=== PATIENT | female | born 1955 | race Caucasian/White ===

== ENCOUNTER 2020-04-24 07:36 | Outpatient (REF) | payer MEDICAID, SELFPAY ==
[2020-04-24 08:17] LABS: Estimated Average Glucose 154 mg/dL
[2020-04-24 08:28] LABS: Alanine Aminotransferase 15 U/L (0-31); Albumin Level 4.2 g/dL (3.5-5.0); Alkaline Phosphatase 106 U/L (39-117); Anion Gap 12 (12-20); Aspartate Amino Transferase 12 U/L (5-31); Bilirubin Total 0.5 mg/dL (0.0-1.0); Blood Urea Nitrogen 13 mg/dL (9-16); Calcium 8.9 mg/dL (8.4-10.2); Carbon Dioxide 27 mmol/L (22-29); Chloride 105 mmol/L (96-108); Estimated Glomerular Filt Rate > 60; Glucose Fasting 133 mg/dL (60-99); Potassium 4.1 mmol/l (3.3-5.1); Sodium 140 mmol/L (135-145); Total Protein 7.5 g/dL (6.5-8.0)
== END 2020-04-24 07:37 | disposition home or self-care (01) ==
LOC: HO.LAB 07:36
PROVIDERS: Visit Provider Internal Medicine
DX: E78.00 Pure hypercholesterolemia, unspecified (principal); E11.9 Type 2 diabetes mellitus without complications; I10 Essential (primary) hypertension
CPT/HCPCS: 80053; 83036

== ENCOUNTER 2020-12-14 07:04 | Outpatient (REF) | payer MEDICAID, SELFPAY ==
[2020-12-14 08:19] LABS: MANUAL DIFF FLAG NO
[2020-12-14 08:24] LABS: Basophils Percent Auto 0.5 % (0-2); Eosinophils Absolute Auto 0.2 X10*3/uL (0.0-0.4); Eosinophils Percent Auto 2.8 % (0-4); Hematocrit 41.6 % (37-47); Hemoglobin 14.1 g/dl (12.0-16.0); Imm Gran Abs Auto 0.02 X10*3/uL (0.00-0.03); Imm Gran Pct Auto 0.3 % (0.0-0.4); Lymphocytes Absolute Auto 1.7 X10*3/uL (1.2-4.9); Lymphocytes Percent Auto 22.2 % (20-40); Mean Corpuscular HGB Conc 33.9 g/dl (31.0-35.0); Mean Corpuscular Hemoglobin 30.2 pg (27.0-33.0); Mean Corpuscular Volume 89.1 fL (80-98); Mean Platelet Volume 10.9 fL (9.4-12.3); Monocytes Absolute Auto 0.9 X10*3/uL (0.1-1.2); Monocytes Percent Auto 12.5 % (2-11); Neutrophils Absolute Auto 4.6 X10*3/uL (2.0-8.3); Neutrophils Percent Auto 61.7 % (45-73); Platelet Count 272 X10*3/uL (160-400); Red Blood Count 4.67 X10*6/uL (4.20-5.50); Red Cell Distribution Width 11.9 % (11.0-16.0); White Blood Count 7.4 X10*3/uL (4.8-10.8)
[2020-12-14 08:45] LABS: Alanine Aminotransferase 8 U/L (0-31); Albumin Level 4.2 g/dL (3.5-5.0); Alkaline Phosphatase 118 U/L (39-117); Anion Gap 13 (12-20); Aspartate Amino Transferase 12 U/L (5-31); Bilirubin Total 0.6 mg/dL (0.0-1.0); Blood Urea Nitrogen 19 mg/dL (9-16); Calcium 9.6 mg/dL (8.4-10.2); Carbon Dioxide 26 mmol/L (22-29); Chloride 106 mmol/L (96-108); Cholesterol 147 mg/dL; Estimated Glomerular Filt Rate > 60; Glucose Random 143 mg/dL (60-115); HDL Cholesterol 35 mg/dL; LDL Cholesterol Calculated 87 mg/dl; Potassium 4.1 mmol/L (3.3-5.1); Sodium 141 mmol/L (135-145); Total Protein 7.7 g/dL (6.5-8.0); Triglycerides 125 mg/dL
[2020-12-14 09:08] LABS: Thyroid Stimulating Hormone 0.48 uIU/mL (0.32-4.0)
[2020-12-14 09:45] LABS: Creatinine Urine 72.99 mg/dL; Microalbumin Urine < 5.0 mg/L
== END 2020-12-14 07:05 | disposition home or self-care (01) ==
LOC: HO.LAB 07:04
PROVIDERS: PCP Internal Medicine; Visit Provider Internal Medicine
DX: E11.9 Type 2 diabetes mellitus without complications (principal); E78.00 Pure hypercholesterolemia, unspecified; I10 Essential (primary) hypertension
CPT/HCPCS: 36415; 80053; 80061; 82043; 84443; 85025

== ENCOUNTER 2021-03-12 08:39 | Outpatient (REF) | payer MEDICAID, SELFPAY ==
[2021-03-12 11:03] LABS: Alanine Aminotransferase 12 U/L (0-31); Albumin Level 4.2 g/dL (3.5-5.0); Alkaline Phosphatase 115 U/L (39-117); Anion Gap 16 (12-20); Aspartate Amino Transferase 12 U/L (5-31); Bilirubin Total 0.9 mg/dL (0.0-1.0); Blood Urea Nitrogen 10 mg/dL (9-16); Calcium 9.7 mg/dL (8.4-10.2); Carbon Dioxide 23 mmol/L (22-29); Chloride 104 mmol/L (96-108); Estimated Glomerular Filt Rate > 60; Glucose Fasting 127 mg/dL (60-99); Sodium 139 mmol/L (135-145); Total Protein 7.8 g/dL (6.5-8.0)
[2021-03-12 11:04] LABS: Estimated Average Glucose 171 mg/dL; Hemoglobin A1c % 7.6 %
== END 2021-03-12 08:40 | disposition home or self-care (01) ==
LOC: HO.10HDL 08:39
PROVIDERS: Visit Provider Internal Medicine
DX: Z00.00 Encounter for general adult medical examination without abnormal findings (principal); E11.9 Type 2 diabetes mellitus without complications; E78.00 Pure hypercholesterolemia, unspecified; I10 Essential (primary) hypertension
CPT/HCPCS: 36415; 80053; 83036

== ENCOUNTER 2021-11-01 07:52 | Outpatient (REF) | payer MEDICARE, MEDICAID, SELFPAY ==
[2021-11-01 10:46] LABS: Alanine Aminotransferase 21 U/L (0-31); Albumin Level 4.2 g/dL (3.5-5.0); Alkaline Phosphatase 107 U/L (39-117); Anion Gap 12 (12-20); Aspartate Amino Transferase 14 U/L (5-31); Bilirubin Total 0.5 mg/dL (0.0-1.0); Blood Urea Nitrogen 15 mg/dL (9-16); Calcium 9.7 mg/dL (8.4-10.2); Carbon Dioxide 25 mmol/L (22-29); Chloride 106 mmol/L (96-108); Estimated Average Glucose 166 mg/dL; Estimated Glomerular Filt Rate > 60; Glucose Random 140 mg/dL (60-115); Hemoglobin A1c % 7.4 %; Potassium 4.3 mmol/L (3.3-5.1); Sodium 139 mmol/L (135-145)
== END 2021-11-01 07:53 | disposition home or self-care (01) ==
LOC: HO.10HDL 07:52
PROVIDERS: Visit Provider Internal Medicine
DX: E11.9 Type 2 diabetes mellitus without complications (principal); E78.00 Pure hypercholesterolemia, unspecified; I10 Essential (primary) hypertension
CPT/HCPCS: 36415; 80053; 83036

== ENCOUNTER 2022-01-31 07:30 | Outpatient (REF) | payer MEDICARE, MEDICAID, SELFPAY ==
[2022-01-31 10:37] LABS: Mean Corpuscular HGB Conc 32.6 g/dl (31.0-35.0); PLT CLUMP 1; Red Cell Distribution Width 11.9 % (11.0-16.0); SCAN SMEAR FLAG 1
[2022-01-31 10:39] LABS: Basophils Percent Auto 0.4 % (0-2); Eosinophils Absolute Auto 0.1 X10*3/uL (0.0-0.4); Eosinophils Percent Auto 1.8 % (0-4); Hematocrit 41.7 % (37.0-47.0); Hemoglobin 13.6 g/dl (12.0-16.0); Imm Gran Abs Auto 0.03 X10*3/uL (0.00-0.03); Imm Gran Pct Auto 0.4 % (0.0-0.4); Lymphocytes Percent Auto 25.4 % (20-40); MANUAL DIFF FLAG SCAN; Mean Corpuscular Hemoglobin 29.2 pg (27.0-33.0); Mean Corpuscular Volume 89.5 fL (80.0-98.0); Mean Platelet Volume 12.5 fL (9.4-12.3); Monocytes Absolute Auto 0.8 X10*3/uL (0.1-1.2); Monocytes Percent Auto 9.7 % (2-11); Neutrophils Absolute Auto 4.8 x10*3/uL (2.0-8.3); Neutrophils Percent Auto 62.3 % (45-73); Red Blood Count 4.66 X10*6/uL (4.20-5.50)
[2022-01-31 10:47] LABS: Alanine Aminotransferase 14 U/L (0-31); Alkaline Phosphatase 108 U/L (39-117); Anion Gap 18 (12-20); Aspartate Amino Transferase 14 U/L (5-31); Bilirubin Total 0.6 mg/dL (0.0-1.0); Blood Urea Nitrogen 17 mg/dL (9-16); Calcium 8.8 mg/dL (8.4-10.2); Carbon Dioxide 18 mmol/L (22-29); Chloride 107 mmol/L (96-108); Cholesterol 134 mg/dL; Estimated Glomerular Filt Rate > 60; Glucose Fasting 158 mg/dL (60-99); HDL Cholesterol 36 mg/dL; LDL Cholesterol Calculated 68 mg/dl; Potassium 4.2 mmol/L (3.3-5.1); Sodium 139 mmol/L (135-145); Total Protein 7.6 g/dL (6.5-8.0); Triglycerides 150 mg/dL
[2022-01-31 10:57] LABS: Estimated Average Glucose 174 mg/dL; Hemoglobin A1c % 7.7 %
[2022-01-31 11:09] LABS: White Blood Count 7.7 X10*3/uL (4.8-10.8)
[2022-01-31 11:41] LABS: Folate 16.3 ng/mL (> or = 4.0); Vitamin B12 592 pg/mL (200-900)
[2022-01-31 12:43] LABS: SLIDE REVIEW VERIFIED
== END 2022-01-31 07:31 | disposition home or self-care (01) ==
LOC: HO.10HDL 07:30
PROVIDERS: Visit Provider Internal Medicine
DX: E11.9 Type 2 diabetes mellitus without complications (principal); E78.00 Pure hypercholesterolemia, unspecified; I10 Essential (primary) hypertension; Z90.710 Acquired absence of both cervix and uterus
CPT/HCPCS: 36415; 80053; 80061; 82607; 82746; 83036; 85025

== ENCOUNTER 2022-02-01 10:47 | Outpatient (REF) | payer MEDICARE, MEDICAID, SELFPAY ==
[2022-02-01 13:55] LABS: Creatinine Urine 65.23 mg/dL; Microalbumin Urine < 5.0 mg/L
== END 2022-02-01 10:48 | disposition home or self-care (01) ==
LOC: HO.10HDLNP 10:47
PROVIDERS: Visit Provider Internal Medicine
DX: E11.9 Type 2 diabetes mellitus without complications (principal); E78.00 Pure hypercholesterolemia, unspecified; I10 Essential (primary) hypertension; Z90.710 Acquired absence of both cervix and uterus
CPT/HCPCS: 82043

== ENCOUNTER 2022-10-31 07:43 | Outpatient (REF) | payer MEDICARE, MEDICAID, SELFPAY ==
[2022-10-31 10:37] LABS: MANUAL DIFF FLAG NO
[2022-10-31 10:46] LABS: Basophils Percent Auto 0.3 % (0-2); Eosinophils Absolute Auto 0.2 X10*3/uL (0.0-0.4); Eosinophils Percent Auto 2.8 % (0-4); Hematocrit 41.4 % (37.0-47.0); Hemoglobin 13.4 g/dl (12.0-16.0); Imm Gran Abs Auto 0.02 X10*3/uL (0.00-0.03); Imm Gran Pct Auto 0.2 % (0.0-0.4); Lymphocytes Absolute Auto 1.8 X10*3/uL (1.2-4.9); Lymphocytes Percent Auto 20.5 % (20-40); Mean Corpuscular HGB Conc 32.4 g/dl (31.0-35.0); Mean Corpuscular Hemoglobin 28.8 pg (27.0-33.0); Mean Platelet Volume 10.8 fL (9.4-12.3); Monocytes Absolute Auto 0.9 X10*3/uL (0.1-1.2); Monocytes Percent Auto 10.2 % (2-11); Neutrophils Absolute Auto 5.7 x10*3/uL (2.0-8.3); Platelet Count 251 X10*3/uL (160-400); Red Blood Count 4.65 X10*6/uL (4.20-5.50); Red Cell Distribution Width 11.9 % (11.0-16.0); White Blood Count 8.6 X10*3/uL (4.8-10.8)
[2022-10-31 11:03] LABS: Alanine Aminotransferase 10 U/L (0-31); Albumin Level 4.3 g/dL (3.5-5.0); Alkaline Phosphatase 103 U/L (39-117); Anion Gap 13 (12-20); Aspartate Amino Transferase 12 U/L (5-31); Bilirubin Total 0.7 mg/dL (0.0-1.0); Blood Urea Nitrogen 17 mg/dL (9-16); Calcium 9.6 mg/dL (8.4-10.2); Carbon Dioxide 26 mmol/L (22-29); Chloride 103 mmol/L (96-108); Cholesterol 123 mg/dL; Estimated Glomerular Filt Rate > 60; Glucose Fasting 124 mg/dL (60-99); HDL Cholesterol 32 mg/dL; LDL Cholesterol Calculated 61 mg/dl; Potassium 3.9 mmol/L (3.3-5.1); Sodium 138 mmol/L (135-145); Total Protein 7.7 g/dL (6.5-8.0); Triglycerides 151 mg/dL
[2022-10-31 11:05] LABS: Estimated Average Glucose 146 mg/dL; Hemoglobin A1c % 6.7 %
== END 2022-10-31 07:44 | disposition home or self-care (01) ==
LOC: HO.10HDL 07:43
PROVIDERS: Visit Provider Internal Medicine
DX: E11.9 Type 2 diabetes mellitus without complications (principal); E78.00 Pure hypercholesterolemia, unspecified; I10 Essential (primary) hypertension; L50.9 Urticaria, unspecified
CPT/HCPCS: 36415; 80053; 80061; 83036; 85025

== ENCOUNTER 2022-11-01 09:36 | Outpatient (REF) | payer MEDICARE, MEDICAID, SELFPAY ==
[2022-11-01 14:28] LABS: Creatinine Urine 147.01 mg/dL; Microalbum/Creatinine Ratio Ur 6.8 ug/mg cr
== END 2022-11-01 09:37 | disposition home or self-care (01) ==
LOC: HO.10HDLNP 09:36
PROVIDERS: Visit Provider Internal Medicine
DX: E11.9 Type 2 diabetes mellitus without complications (principal); E78.00 Pure hypercholesterolemia, unspecified; I10 Essential (primary) hypertension; L50.9 Urticaria, unspecified
CPT/HCPCS: 82043

== ENCOUNTER 2023-01-30 07:56 | Outpatient (REF) | payer MEDICARE, MEDICAID, SELFPAY ==
[2023-01-30 11:38] LABS: Alanine Aminotransferase 13 U/L (0-31); Albumin Level 4.2 g/dL (3.5-5.0); Alkaline Phosphatase 100 U/L (39-117); Anion Gap 15 (12-20); Aspartate Amino Transferase 13 U/L (5-31); Bilirubin Total 0.8 mg/dL (0.0-1.0); Blood Urea Nitrogen 15 mg/dL (9-16); Calcium 9.8 mg/dL (8.4-10.2); Carbon Dioxide 25 mmol/L (22-29); Chloride 104 mmol/L (96-108); Estimated Glomerular Filt Rate > 60; Glucose Random 157 mg/dL (60-115); Potassium 4.6 mmol/L (3.3-5.1); Sodium 139 mmol/L (135-145); Total Protein 8.4 g/dL (6.5-8.0)
[2023-01-30 11:52] LABS: Estimated Average Glucose 148 mg/dL; Hemoglobin A1c % 6.8 %
== END 2023-01-30 07:57 | disposition home or self-care (01) ==
LOC: HO.10HDL 07:56
PROVIDERS: Visit Provider Internal Medicine
DX: E11.9 Type 2 diabetes mellitus without complications (principal); E78.00 Pure hypercholesterolemia, unspecified; I10 Essential (primary) hypertension
CPT/HCPCS: 36415; 80053; 83036

== ENCOUNTER 2023-11-01 09:16 | Outpatient (REF) | payer MEDICARE, MEDICAID, SELFPAY ==
[2023-11-01 11:20] LABS: Estimated Average Glucose 151 mg/dL; Hemoglobin A1c % 6.9 % (<6.0)
[2023-11-01 11:35] LABS: Alanine Aminotransferase 35 U/L (0-31); Albumin Level 4.2 g/dL (3.5-5.0); Alkaline Phosphatase 90 U/L (39-117); Anion Gap 14 (12-20); Aspartate Amino Transferase 23 U/L (5-31); Bilirubin Total 0.5 mg/dL (0.0-1.0); Blood Urea Nitrogen 17 mg/dL (9-16); Carbon Dioxide 26 mmol/L (22-29); Chloride 105 mmol/L (96-108); Estimated Glomerular Filt Rate > 60; Glucose Random 128 mg/dL (60-115); Potassium 4.2 mmol/L (3.3-5.1); Sodium 141 mmol/L (135-145)
== END 2023-11-01 09:17 | disposition home or self-care (01) ==
LOC: HO.10HDL 09:16
PROVIDERS: Visit Provider Internal Medicine
DX: E11.9 Type 2 diabetes mellitus without complications (principal); I10 Essential (primary) hypertension; Z68.29 Body mass index [BMI] 29.0-29.9, adult
CPT/HCPCS: 36415; 80053; 83036

== ENCOUNTER 2024-01-24 09:39 | Outpatient (REF) | payer MEDICARE, MEDICAID, SELFPAY ==
[2024-01-24 11:31] LABS: Alanine Aminotransferase 11 U/L (0-31); Albumin Level 4.4 g/dL (3.5-5.0); Alkaline Phosphatase 104 U/L (39-117); Anion Gap 12 (12-20); Aspartate Amino Transferase 14 U/L (5-31); Bilirubin Total 0.6 mg/dL (0.0-1.0); Blood Urea Nitrogen 15 mg/dL (9-16); Calcium 10.2 mg/dL (8.4-10.2); Carbon Dioxide 28 mmol/L (22-29); Chloride 105 mmol/L (96-108); Cholesterol 116 mg/dL (<200); Estimated Glomerular Filt Rate > 60; Glucose Random 123 mg/dL (60-115); HDL Cholesterol 37 mg/dL (>40); LDL Cholesterol Calculated 56 mg/dL (<100); Potassium 4.2 mmol/L (3.3-5.1); Sodium 141 mmol/L (135-145); Total Protein 8.2 g/dL (6.5-8.0); Triglycerides 119 mg/dL (<150)
[2024-01-24 11:33] LABS: Estimated Average Glucose 154 mg/dL
[2024-01-24 11:50] LABS: Creatinine Urine 95.36 mg/dL; Microalbum/Creatinine Ratio Ur 6.2 ug/mg cr (<30)
== END 2024-01-24 09:40 | disposition home or self-care (01) ==
LOC: HO.10HDL 09:39
PROVIDERS: Visit Provider Internal Medicine
DX: E11.9 Type 2 diabetes mellitus without complications (principal); E78.00 Pure hypercholesterolemia, unspecified; I10 Essential (primary) hypertension; Z90.710 Acquired absence of both cervix and uterus
CPT/HCPCS: 36415; 80053; 80061; 82043; 82570; 83036

== ENCOUNTER 2024-10-31 09:06 | Outpatient (REF) | payer MEDICARE, SELFPAY ==
--- OUTSIDE RECORDS SUMMARY | 2024-10-31 09:38 | XMS_ITS | Encounter Summary ---
Author Organization [facility] Address [facility] [place] [address] Care Team Providers Care Route Specialist Name Role Phone Jyoti Carrasco APRN Primary Care Provider [phone] Encounter Details Date Type Department Care Team (Late st Contact Info) Description 04/23/2024 Scanned Outside Records [facility] Historical Encounter Provider, MD Bipin Social History Tobacco Use Types Packs/Day Years Used Date Smoking Tobacco: Never Smokeless Tobacco: Never Alcohol Use Standard Drinks/Week Comments Never 0 (1 standard drink = 0.6 oz pur e alcohol) Humiliation, Afraid, Rape, and Kick questionnair e Answer Date Recorded Within the last year, have y ou been afraid of your partner or ex-partner? No 04/14/2023 Within the last year, have y ou been humiliated or emotionally abused in other ways by your partner or ex-partner? No Within the last year, have y ou been kicked, hit, slapped, or otherwise physically hurt by your partner or ex-partner? No 04/14/2023 Within the last year, have y ou been raped or forced to have any kind of sexual activity by your partner or ex-partner? No 04/14/2023 Social Connection and Isolation Panel Answer Date Recorded In a typical week, how many times do you talk on the phone with family, friends, or neighbors? More than three times a week 04/14/2023 How often do you get togethe r with friends or relatives? More than three times a week 04/14/2023 How often do you attend [facility] or yazdanism services? Patient declined 04/14/2023 Do you belong to any clubs o r organizations such as sikh groups, unions, fraternal or athletic groups, or school groups? Patient declined 04/14/2023 Attends Club or Organization Meetings Not on alexandra e 04/14/2023 Are you , , di vorced, , never , or living with a partner? 04/14/2023 AUDIT-C Answer Date Recorded Q1: How often do you have a drink containing alcohol? Never 04/14/2023 Q2: How many drinks containi ng alcohol do you have on a typical day when you are drinking? Patient does not drink Q3: How often do you have si x or more drinks on one occasion? Never 04/14/2023 Overall Financial Resource Strain (CARDIA) Answe r Date Recorded How hard is it for you to pa y for the very basics like food, housing, medical care, and heating? Not very hard 04/14/2023 PHQ-2 Answer Date Recorded Patient Health Questionnaire-2 Score 0 04/14/2023 [facility] - Occupational Stress Questionnaire Answer Date Recorded Do you feel stress - tense, restless, nervous, or anxious, or unable to sleep at night because your mind is troubled all the time - these days? Not at all 04/14/2023 Exercise Vital Sign Answer Date Recorde d On average, how many days pe r week do you engage in moderate to strenuous exercise (like a brisk walk)? 6 days 04/14/2023 On average, how many minutes do you engage in exercise at this level? 60 min 04/14/2023 Hunger Vital Sign Answer Date Recorded Within the past 12 months, y ou worried that your food would run out before you got the money to buy more. Never true 04/14/20 23 Within the past 12 months, t he food you bought just didn't last and you didn't have money to get more. Never true 04/14/2023 PRAPARE - Transportation Answer Date Re corded In the past 12 months, has l ack of transportation kept you from medical appointments or from getting medications? No 03/20 In the past 12 months, has l ack of transportation kept you from meetings, work, or from getting things needed for daily living? No 04/14/2023 Housing Stability Vital Sign Answer Eloy e Recorded In the last 12 months, was t here a time when you were not able to pay the mortgage or rent on time? No 04/14/2023 Number of Places Lived in the Last Year Not on f ile 04/14/2023 In the last 12 months, was t here a time when you did not have a steady place to sleep or slept in a prison (including now)? No 04/14/2023 [facility] Domestic Violence Answer Date Rec orded Do you feel threatened or afraid of others close to you? No 04/04/2023 [facility] Social Needs Screening - Social Connect ion Answer Date Recorded Would you like help with any of the following needs: food, medicine/medical supplies, transportation, loneliness, housing or utilities? Not on file 10/25/2023 [facility] Social Needs Screen ing - Medical Financial Resource Strain Answer Date Recorded Would you like help with any of the following needs: food, medicine/medical supplies, transportation, loneliness, housing or utilities? Not on file 06/26/2023 [facility] Social Needs Screening - Food Insecurit y Answer Date Recorded Would you like help with any of the following needs: food, medicine/medical supplies, transportation, loneliness, housing or utilities? See other domains 06/20/2023 Would you like help with any of the following needs: food, medicine/medical supplies, transportation, loneliness, or housing/utilities? Not on file 06/20/2023 [place] [facility] Social Needs Screening - Transportation Answer Date Recorded Would you like help with any of the following needs: food, medicine/medical supplies, transportation, loneliness, housing or utilities? Not on file 06/26/2023 [facility] Social Needs Screening - Housing Answer Date Recorded Would you like help with any of the following needs: food, medicine/medical supplies, transportation, loneliness, housing or utilities? Not on file 06/26/2023 Comments No Sex and Gender Information Value Date Recorded Sex Assigned at Not on file Legal Sex Female 4:37 AM EDT Gender Identity Female 04/10/2023 11:34 AM EDT Sexual Orientation Straight 04/10/2023 11 :34 AM EDT documented as of this encounter Plan of Treatment Upcoming Encounters Date Type Department Care Team (Late st Contact Info) Description 05/29/2025 1:00 PM EST Office Visit [facility] [address] [place] [address] Jyoti Carrasco APRN [address] [place] [address] documented as of this encounter Visit Diagnoses Not on filedocumented in this encounter Care Teams Route Specialist Relationship Specialty Start Date End Date Jyoti Carrasco APRN [address] [place] [address] PCP - General Family Medicine 02/21/24 documented as of this encounter
--- OUTSIDE RECORDS SUMMARY | 2024-10-31 09:38 | XMS_ITS | Encounter Summary ---
Author Organization [facility] Address [address] [place] [address] Care Team Providers Care General Dentist/Owner Name Role Phone Jyoti Carrasco APRN Primary Care Provider [phone] Encounter Details Date Type Department Care Team (Late st Contact Info) Description 05/10/2024 Scanned Outside Records [facility] Historical Encounter Provider, MD Bipin Social History [...] week 04/14/2023 How often do you attend [facility] or cheondoism services? Patient declined 04/14/2023 Do you belong to any clubs o r organizations such as advent groups, unions, fraternal or athletic groups, or [...] Recorded Patient Health Questionnaire-2 Score 0 04/14/2023 [facility] - Occupational Stress [...] place to sleep or slept in a fdc (including now)? No 04/14/2023 [facility] Domestic [...] Description 05/29/2025 1:00 PM EST Office Visit [facility] [address] [place] [address] Jyoti Carrasco APRN [address] [place] [address] documented as of this encounter Visit Diagnoses Not on filedocumented in this encounter Care Teams General Dentist/Owner Relationship Specialty Start Date End Date Jyoti Carrasco APRN [address] [place] [address] PCP - General Family Medicine 02/21/24 documented as of this encounter
--- OUTSIDE RECORDS SUMMARY | 2024-10-31 09:38 | XMS_ITS | Clinical Summary ---
Author Organization [facility] Address [address] [place] [address] Care Team Providers Care Body Engineer Name Role Phone Jyoti Carrasco APRN Primary Care Provider [phone] Allergies No known active allergies Medications aspirin 81 mg chewable tablet CHEW ONE TABLET BY MOUTH EVERY DAY 02/07/2023 Active hydrOXYzine 10 mg tablet Take 10 mg by mouth 3 (three) times a day if needed. Active Januvia 100 mg tabletIndicatio ns:Type 2 diabetes mellitus without complication, without long-term current use of insulin (CMS/Commercial -[facility]) Take 1 tablet (100 mg total) by mouth 1 (one) time each day. 90 tablet 1 05/24/2024 5 Active cyanocobalamin (VITAMIN B-12) 1,000 mcg tabletIndicatio ns:B12 deficiency Take 1 tablet (1,000 mcg total) by mouth 1 (one) time each day. 90 tablet 1 05/24/2024 5 Active atorvastatin (LIPITOR) 40 mg tabletIndicatio ns:Type 2 diabetes mellitus without complication, without long-term current use of insulin (CMS/Commercial -[facility]) Take 1 tablet (40 mg total) by mouth 1 (one) time each day. 90 tablet 1 05/24/2024 5 Active amLODIPine (NORVASC) 10 mg tabletIndicatio ns:Hypertension , essential Take 1 tablet (10 mg total) by mouth 1 (one) time each day. 90 tablet 08/22/2024 5 Active metFORMIN (GLUCOPHAGE) 1,000 mg tabletIndicatio ns:Type 2 diabetes mellitus without complication, without long-term current use of insulin (CMS/Commercial -HCC) Take 1 tablet (1,000 mg total) by mouth in the morning and 1 tablet (1,000 mg total) in the evening. Take with meals. 180 tablet 08/22/2024 Active Active Problems Problem Noted Date Diagnosed Date Cyst of pancreas (CMS/Commercial-HCC) 05/24/2024 Diverticula of intestine 05/24/2024 Functional dyspepsia 05/24/2024 Gastroduodenitis 05/24/2024 Hypertension, essential 05/24/2024 Adrenal adenoma, left 04/14/2023 Acute pancreatitis (Commercial-[facility]) 04/14/2023 Overview (04/14/2023): Patient taking Januvia for a year.Denies alcohol use or abdominal pain. No prior finding reported. Left nephrolithiasis 04/14/2023 Overview (04/14/2023): 1 mm non-obstructive found on CT 04/04/23. Type 2 diabetes mellitus wit hout complication, without long-term current use of insulin (CMS/Commercial-HCC) 04/14/2023 Encounters Date Type Department Care Team Description 10/09/2024 1:30 PM EDT Clinical Support [facility] [address] [place] [address] Type 2 diabetes mellitus without complication, without long-term current use of insulin (CMS/Commercial-HCC) 08/22/2024 1:00 PM EST Office Visit [facility] [address] [place] [address] Jyoti Carrasco APRN Type 2 diabetes mellitus without complication, without long-term current use of insulin (CMS/Commercial-HCC) (Primary Dx); Hypertension, essential 08/19/2024 9:45 AM EST Clinical Support [facility] [address] [address] Type 2 diabetes mellitus without complication, without long-term current use of insulin (CMS/Commercial-HCC); Cyst of pancreas ([facility] Type 2 diabetes mellitus without complications [facility]) from Last 3 Months Immunizations Immunization Administration Dates Next Due Influenza, High-Dose, Quadrivalent (CVX 197) Influenza, Quadrivalent, Adjuvanted (CVX 205) Influenza, trivalent, adjuvanted (CVX 168) 04/05 Rsv, Recombinant, Protein Rider bunit Rsvpref, Adj, Pf (CVX 303) 04/18/2023 pneumococcal conjugate PCV20 , polysaccharide [id number] conjugate (CVX 216) 09/09/2022 Family History Medical History Relation Name Comments Kidney disease Brother Addie Lamb Cancer Maternal Grandmother Sole Rosa Diabetes Mother Anika Reza Cancer Mother's Sister Yudith Garcia Relation Name Status Comments Brother Addie Lamb Maternal Grandmother Sole Rosa Mother Anika Reza Mother's Sister Yudith Garcia Social History Tobacco Use Types Packs/Day Years Used Date Smoking Tobacco: Never Smokeless Tobacco: Never Tobacco Cessation:Counseling Given: Not Answered Alcohol Use Standard Drinks/Week Comments Never 0 [...] week 04/14/2023 How often do you attend chur or tenriism services? Patient declined 04/14/2023 Do you belong to any clubs o r organizations such as baptist groups, unions, fraternal or athletic groups, or [...] Date Recorded Patient Health Questionnaire-2 Score 0 05/24/2024 [facility] - Occupational Stress Questionnaire Answer Date Recorded [...] place to sleep or slept in a mcfp (including now)? No 04/14/2023 [place] Domestic [...] Orientation Straight 04/10/2023 11 :34 AM EDT Last Filed Vital Signs Vital Sign Reading Time Taken Comments Blood Pressure 132/80 08/22/2024 1:00 PM EST Pulse 72 08/22/2024 1:00 PM EST Temperature 36.1 ??C (97 ??F) 07/11/2024 11:35 AM EST Respiratory Rate 16 08/22/2024 1:00 PM EST Oxygen Saturation 99% 08/22/2024 1:00 PM EST Inhaled Oxygen Concentration - - Weight 71.3 kg (157 lb 3 oz) 08/22/2024 1:00 PM EST Height 162.6 cm (5' 4 ) 08/22/2024 1:00 PM EST Body Mass Index 26.98 08/22/2024 1:00 PM EST Plan of Treatment Upcoming Encounters Date Type Department Care Team (Late st Contact Info) Description 05/29/2025 1:00 PM EST Office Visit [facility] [address] [place] [address] Jyoti Carrasco, CONTROL SYSTEMS DESIGNER [address] [place] [address] Health Maintenance Due Date Last Done Comments CT Colonography 1956 FIT-DNA 1956 FIT 1956 FOBT 1956 Sigmoidoscopy 1956 Depression Screening 1968 DTaP,Tdap,and Td Vaccines (1 - Tdap) 1975 Advance Care Planning 2021 Colonoscopy 06/19/2024 06/19/2014 [place] Colorectal Cancer Screening 06/19/2024 Mammogram 11/17/2024 11/17/2022 Diabetic Foot Exam 01/21/2025 01/22/2024 Hemoglobin A1C 02/19/2025 08/19/2024, 04/20, 08/02/2023, Additional history exists Fall Risk Screening 07/11/2025 07/11/2024 Lipid Panel 08/19/2029 08/19/2024, 05/13/2024 COVID-19 Vaccine Discontinued 04/17/2022, , 09/24/2020, Additional history exists Pneumococcal Vaccine: 50+ Years Completed 09/09/2022 Pneumococcal Vaccine: Pediatrics (0 to 5 Years) and At-Risk Patients (6 to 49 Years) Aged Out 09/09/2022 No longer eligible based on patient's age to complete this topic RSV women or 60 years and older Completed 04/18/2023 Influenza Vaccine Completed 04/05/2024, , 04/17/2022 Osteoporosis Screening Completed 07/02/2024 Diabetes Screening Discontinued 08/19/2024, 0 08/19/2024, 07/11/2024, Additional history exists HIB Vaccines Aged Out No longer eligi ble based on patient's age to complete this topic HPV Vaccines Aged Out No longer eligi ble based on patient's age to complete this topic Hepatitis A Vaccines Aged Out No long er eligible based on patient's age to complete this topic Hepatitis B Vaccines Aged Out No long er eligible based on patient's age to complete this topic Hepatitis C Screening Discontinued IPV Vaccines Aged Out No longer eligi ble based on patient's age to complete this topic Meningococcal ACWY Aged Out No longer eligible based on patient's age to complete this topic RSV patients under 20 months Aged Out No longer eligible based on patient's age to complete this topic Zoster Vaccines Discontinued Procedures Procedure Name Priority Date/Time Associated Diagnosis Comments ANKLE BRACHIAL INDEX Routine 10/09/2024 1:40 PM EDT Type 2 diabetes mellitus without complication, without long-term current use of insulin ([employer]) CBC WITH AUTO DIFFERENTIAL Routine 08/19/2024 8:54 AM EST Type 2 diabetes mellitus without complication, without long-term current use of insulin ([employer]) Cyst of pancreas ([employer]) THYROID FUNCTION CASCADE Routine 08/19/2024 8:54 AM EST Type 2 diabetes mellitus without complications ([employer]) HEMOGLOBIN A1C Routine 08/19/2024 8:54 AM EST Type 2 diabetes mellitus without complication, without long-term current use of insulin ([employer]) URINE MICROALBUMIN Routine 08/19/2024 8: 54 AM EST Type 2 diabetes mellitus without complication, without long-term current use of insulin ([employer]) LIPID PANEL Routine 08/19/2024 8:54 AM EST Type 2 diabetes mellitus without complication, without long-term current use of insulin ([facility] COMPREHENSIVE METABOLIC PANEL Routine 08/19/2024 8:54 AM EST Type 2 diabetes mellitus without complication, without long-term current use of insulin ([facility]) CBC WITH DIFFERENTIAL Routine 08/19/2024 8:54 AM EST Type 2 diabetes mellitus without complication, without long-term current use of insulin ([facility]) Cyst of pancreas ([facility]) DEXA BONE DENSITY AXIAL SKELETON Routine 07/02/2024 1:00 PM EST Osteoporosis screening from Last 3 Months or Most Recently Relevant to Health Maintenance Results * Ankle brachial index (10/09/2024 1:40 PM EDT) Narrative Bisi Gan LPN - 10/09/2024 1:40 PM EDT Ankle Brachial Right Brachial Systolic: 140 Left brachial systolic: 134 Highest arm systolic pressure: 140 Right ankle systolic DP: 168 Right leg systolic PT: 162 Left ankle systolic DP: 126 Left leg systolic PT: 158 Right BRIAN: 1.2 Left BRIAN: 1.13 BRIAN results within acceptable range. Jyoti Carrasco APRN NURSING ASSESSMENTS Final Result * Thyroid Function [place] (08/19/2024 8:54 AM EST) TSH 1.06 0.35 - 4.94 uIU/mL LAB CHEMISTRY METHOD 08/19/2024 10:32 AM EST [facility] Comment:Thyroid Function Dean evan Interp: No further testing Blood Venous blood specimen / Unknown Venipuncture / Unknown 08/19/2024 8:54 AM EST 08/19/2024 8:54 AM EST Jyoti Carrasco APRN LAB BLOOD ORDERABLES Final Result [facility] [address] [facility] [address] [place] [address], * CBC auto differential (08/19/2024 8:54 AM EST) WBC 8.0 4.4 - 10.5 x10(3)/uL LAB HEMATOLOGY METHOD 08/19/2024 9:59 AM EST [facility] RBC 4.43 3.75 - 5.00 x10(6)/uL LAB HEMATOLOGY METHOD 08/19/2024 9:59 AM EST [facility] Hgb 12.6 11.4 - 14.7 g/dL LAB HEMATOLOGY METHOD 08/19/2024 9:59 AM EST [facility] HCT 39.4 34.3 - 45.5 % LAB HEMATOLOGY METHOD 08/19/2024 9:59 AM EST [facility] MCV 88.9 80.5 - 99.8 fL LAB HEMATOLOGY METHOD 08/19/2024 9:59 AM EST [facility] MCH 28.4 26.8 - 33.0 pg LAB HEMATOLOGY METHOD 08/19/2024 9:59 AM EST [facility] MCHC 32.0 31.0 - 35.4 g/dL LAB HEMATOLOGY METHOD 08/19/2024 9:59 AM EST [facility] RDW 12.4 11.7 - 14.7 % LAB HEMATOLOGY METHOD 08/19/2024 9:59 AM EST [facility] Platelet 277 139 - 361 x10(3)/uL LAB HEMATOLOGY METHOD 08/19/2024 9:59 AM EST [facility] MPV 11.0 8.9 - 12.7 fL LAB HEMATOLOGY METHOD 08/19/2024 9:59 AM EST [facility] Immature Granulocyte % 0.4 % LAB HEMATOLOGY METHOD 08/19/2024 9:59 AM EST [facility] Comment:The Immature Granulo cyte (IG) parameter includes promyelocytes, myleocytes, and metamyolecytes. It does not include band forms. Preliminary studies have indicated IG % and/or Absolute show promise as an early screen for infection. Neutrophil % 64.0 % LAB HEMATOLOGY METHOD 08/19/2024 9:59 AM EST [facility] Lymphocyte % 22.1 % LAB HEMATOLOGY METHOD 08/19/2024 9:59 AM EST [facility] Monocyte % 9.9 % LAB HEMATOLOGY METHOD 08/19/2024 9:59 AM EST [facility] Eosinophil % 3.1 % LAB HEMATOLOGY METHOD 08/19/2024 9:59 AM EST [facility] Basophil % 0.5 % LAB HEMATOLOGY METHOD 08/19/2024 9:59 AM EST [facility] Nucleated RBC % 0.0 0.0 - 0.4 % LAB HEMATOLOGY METHOD 08/19/2024 9:59 AM EST [facility] Absolute Immature Granulocyte Count 0.03 <=0.06 x10(3)/ul LAB HEMATOLOGY METHOD 08/19/2024 9:59 AM EST [facility] Absolute Neutrophil Count 5.1 1.5 - 7.5 x10(3)/ul LAB HEMATOLOGY METHOD 08/19/2024 9:59 AM EST [facility] Absolute Lymphocyte Count 1.8 1.0 - 4.8 x10(3)/ul LAB HEMATOLOGY METHOD 08/19/2024 9:59 AM EST [facility] Absolute Monocyte Count 0.8 0.0 - 0.8 x10(3)/ul LAB HEMATOLOGY METHOD 08/19/2024 9:59 AM EST [facility] Absolute Eosinophil Count 0.3 0.0 - 0.5 x10(3)/ul LAB HEMATOLOGY METHOD 08/19/2024 9:59 AM EST [facility] Absolute Basophil Count 0.0 0.0 - 0.2 x10(3)/ul LAB HEMATOLOGY METHOD 08/19/2024 9:59 AM EST [facility] Absolute Nucleated RBC Count 0.00 0.00 - 0.03 x10(3)/ul LAB HEMATOLOGY METHOD 08/19/2024 9:59 AM EST [facility] Blood Venous blood specimen / Unknown Venipuncture / Unknown 08/19/2024 8:54 AM EST 08/19/2024 8:54 AM EST us Jyoti Carrasco CONTROL SYSTEMS DESIGNER LAB BLOOD ORDERABLES Final Result [facility] [address] [place] [address], * Urine Microalbumin (08/19/2024 8:54 AM EST) Microalb, Ur 0.6 0.5 - 29.0 mg/dL LAB CHEMISTRY METHOD 08/19/2024 6:33 PM EST [facility] Comment: Urinary microalbumin is intended to detect early glomerular damage.?Samples from patients with moderate to heavy proteinuria may yield falsely low or false negative results with this assay. Creatinine, Urine 83 mg/dL LAB CHEMISTRY METHOD 08/19/2024 6:33 PM EST [facility] Microalbumin/Crea tinine Ratio 7 1 - 30 mg/g LAB CHEMISTRY METHOD 08/19/2024 6:33 PM EST [facility] Comment: Urine Microalbumin note: The ADA (Diabetes care (1997) 20:S24-S27) has defined abnomalities in Albumin excretion as follows: Category ?Result Normal ? <30 Microalbuminuria ?30-300 Clinical Albuminuria ? >300 The ADA recommends that at least two of three specimens,collected within a 3-6 month period be abnormal, before considering a patient to be within a diagnostic category. Urine Urine specimen obtained by clean catch procedure / Unknown Non-blood Collection / Unknown 08/19/2024 8:54 AM EST 08/19/2024 8:54 AM EST Jyoti Crarasco APRN LAB URINE ORDERABLES Final Result Performing Organization Address City/State/[facility] Co de Phone Number [facility] [address] [place] [address], * (ABNORMAL) Hemoglobin A1c (08/19/2024 8:54 AM EST) Hemoglobin A1c 6.5(H) 4.0 - 6.0 % LAB CHEMISTRY METHOD 08/19/2024 6:40 PM EST [facility] Blood Venous blood specimen / Unknown Venipuncture / Unknown 08/19/2024 8:54 AM EST 08/19/2024 8:54 AM EST Jyoti Carrasco APRN LAB BLOOD ORDERABLES Final Result [facility] [address], [facility], * (ABNORMAL) Lipid panel (08/19/2024 8:54 AM EST) Triglycerides 78 7 - 149 mg/dL LAB CHEMISTRY METHOD 08/19/2024 10:09 AM EST [facility] Comment: Triglycerides: Normal - Less than 150 mg/dl Borderline High - 150 to 199 mg/dl High - 200 to 499 mg/dl Very High - 500 mg/dl or greater Cholesterol, Total 108(L) 118 - 199 mg/dL LAB CHEMISTRY METHOD 08/19/2024 10:09 AM EST [facility] Comment: Cholesterol: Desirable- Less than 200 mg/dl Borderline high- 200 to 239 mg/dl High- 240 mg/dl or greater HDL Cholesterol 34(L) 40 - 60 mg/dL LAB CHEMISTRY METHOD 08/19/2024 10:09 AM EST [facility] Comment: HDL Cholesterol: High (Desirable) - Greater than 60 mg/dl Acceptable - 40 to 60 mg/dl Low - Less than 40 mg/dl Chol/HDL Ratio 3.2(L) 3.9 - 5.7 LAB CHEMISTRY METHOD 08/19/2024 10:09 AM EST [facility] LDL Calculated 58 <=130 mg/dL LAB CHEMISTRY METHOD 08/19/2024 10:09 AM EST [facility] Comment: LDL Cholesterol: Below 70 mg/dL - Best for people who have coronary artery disease - including a history of heart attacks, angina, stents, or coronary bypass. Below 100 mg/dL - Optimal for people at risk of coronary artery disease or who have diabetes. Near optimal for people with uncomplicated coronary artery disease. 100-129 mg/dL - Near optimal if there is no coronary artery disease. High if there is coronary artery disease. 130-159 mg/dL - Borderline high if there is no coronary artery disease. High if there is coronary artery disease. 160-189 mg/dL - High if there is no coronary artery disease. Very high if there is coronary artery disease. 190 mg/dL and above - Very high, likely representing a genetic condition. Blood Venous blood specimen / Unknown Venipuncture / Unknown 08/19/2024 8:54 AM EST 08/19/2024 8:54 AM EST us Jyoti Garcia Danilo LAMBERT LAB BLOOD ORDERABLES Final Result [facility] [address] [facility] [address] [place] [id number], [place] [phone] * (ABNORMAL) Comprehensive metabolic panel (08/19/2024 8:54 AM EST) Pathologist [facility] Sodium 141 136 - 145 mmol/L LAB CHEMISTRY METHOD 08/19/2024 10:09 AM EST [facility] Potassium 4.4 3.5 - 5.1 mmol/L LAB CHEMISTRY METHOD 08/19/2024 10:09 AM EST [facility] Chloride 108(H) 98 - 107 mmol/L LAB CHEMISTRY METHOD 08/19/2024 10:09 AM EST [facility] CO2 24 22 - 31 mmol/L LAB CHEMISTRY METHOD 08/19/2024 10:09 AM EST [facility] Glucose 106 80 - 115 mg/dL LAB CHEMISTRY METHOD 08/19/2024 10:09 AM EST [facility] BUN 15 7 - 20 mg/dL LAB CHEMISTRY METHOD 08/19/2024 10:09 AM EST [facility] Creatinine 0.64 0.60 - 1.10 mg/dL LAB CHEMISTRY METHOD 08/19/2024 10:09 AM EST [facility] BUN/Creatinine Ratio 23.4(H) 7.3 - 21.7 LAB CHEMISTRY METHOD 08/19/2024 10:09 AM EST [facility] Calcium 9.7 8.4 - 10.2 mg/dL LAB CHEMISTRY METHOD 08/19/2024 10:09 AM EST [facility] Total Protein 7.6 6.4 - 8.3 g/dL LAB CHEMISTRY METHOD 08/19/2024 10:09 AM EST [facility] Albumin Level 3.9 3.5 - 5.0 g/dL LAB CHEMISTRY METHOD 08/19/2024 10:09 AM EST [facility] Bilirubin Total 0.5 0.2 - 1.2 mg/dL LAB CHEMISTRY METHOD 08/19/2024 10:09 AM EST [facility] ALT 10 6 - 55 U/L LAB CHEMISTRY METHOD 08/19/2024 10:09 AM EST [facility] AST 10 5 - 34 U/L LAB CHEMISTRY METHOD 08/19/2024 10:09 AM EST [facility] ALP 84 40 - 150 U/L LAB CHEMISTRY METHOD 08/19/2024 10:09 AM EST [facility] Osmolality Calc 292 280 - 300 mOs/kg LAB CHEMISTRY METHOD 08/19/2024 10:09 AM EST [facility] Anion Gap 9 2 - 12 mmol/L LAB CHEMISTRY METHOD 08/19/2024 10:09 AM EST [facility] Corrected Calcium 9.78 mg/dL 025 10:09 AM EST [facility] eGFR 96 mL/min LAB CHEMISTRY METHOD 08/19/2024 10:09 AM EST [facility] Comment: Calculation based on the Chronic Kidney Disease Epidemiology Collaboration (CKD- EPI) equation refit without adjustment for race. GFR ranges: A GFR of 60 higher is in the normal range. A GFR below 60 may mean kidney disease. A GFR of 15 or lower may mean kidney failure. Below shows the 5 stages of CKD with ICD-10 code and GFR for each stage: N18.1 Stage 1: With normal or high GFR (GFR > 90 mL/min) N18.2 Stage 2: Mild CKD (GFR = 60-89 mL/min) N18.3 Stage 3A: Moderate CKD (GFR = 45-59 mL/min) N18.3 Stage 3B: Moderate CKD (GFR = 30-44 mL/min) N18.4 Stage 4: Severe CKD (GFR = 15-29 mL/min) N18.5 Stage 5: End Stage CKD (GFR < 15 mL/min) Blood Venous blood specimen / Unknown Venipuncture / Unknown 08/19/2024 8:54 AM EST 08/19/2024 8:54 AM EST us Jyoti Carrasco APRN LAB BLOOD ORDERABLES Final Result [facility] [address] [place] [address], * DEXA Bone Density Axial Skeleton (07/02/2024 1:00 PM EST) Anatomical Region Laterality Modality Wrist, Hip, L-spine N/A Radiographic Imaging Impressions 07/03/2024 1:31 PM EST Normal bone mineral density according to the W.H.O. criteria. Dictated on: 07/03/2024 1:23 PM Signed by: Toro Oneal M.D. ??07/03/2024 1:31 PM Narrative 07/03/2024 1:31 PM EST DEXA BONE DENSITY AXIAL SKELETON HISTORY: Special screening for osteoporosis postmenopausal. History of diabetes. COMPARISON: None. Examination performed at [facility] DEXA on a [employer] W DEXA Scanner. DEXA INFORMATION Please note: 1) The T-score compares the BMD of an individual with the young normal mean and expresses the difference as a standard deviation score. 2) The Z-score compares the BMD of an individual with age-matched, gender- matched, and ethnic-matched controls and expresses the difference as a standard deviation score. 3) The World Health Organization classifies postmenopausal women as osteoporotic when T-scores are -2.5 or below, low bone mass when T-scores are between -1.0 and -2.5, and normal when T-scores are -1.0 or above. 4) In untreated postmenopausal women and elderly men there is a strong association between low BMD and the risk of osteoporotic fractures. 5) The National Osteoporosis Foundation recommends pharmacologic therapy for osteoporosis in postmenopausal women and men over 50 who have: * ??A vertebral or hip fracture * ??A DXA hip or spine T-score less than or equal to -2.5 * ??Low bone mass and a [place]-adapted WHO 10 year probability of a hip fracture greater than or equal to 3% or 10 year probability of any major osteoporosis-related fracture greater than or equal to 20%. * ??Patient preferences may indicate treatment for people with 10-year fracture probability above or below these levels. 6) The [place] [employer] recommends pharmacologic therapy for osteoporosis for chronic glucocorticoid users with T-scores of -2.0 or below. 7) ??Secondary causes of bone loss should be evaluated if clinically indicated since the etiology of low BMD cannot be determined by BMD measurement alone. Fracture risk assessment includes clinical criteria. See the WHO FRAX at www.shef.ac.uk/frax. LUMBAR SPINE: -Average bone mineral density (g/sq.cm) L1-L4: 1.007 -Previous bone mineral density: None -T-score: -0.36 -Z-score: 1.60 LEFT FEMORAL NECK: -Average bone mineral density (g/sq.cm) Neck: 0.788 -Previous neck: None -T-score: -0.73 -Z-score: 0.88 LEFT TOTAL HIP: -Average bone mineral density (g/sq.cm) total hip: 0.932 -Previous total hip: None -T-score: -0.22 -Z-score: 1.08 Procedure Note Toro Oneal MD - 07/03/2024 DEXA BONE DENSITY AXIAL SKELETON HISTORY: Special screening for osteoporosis postmenopausal. History ofdiabetes. COMPARISON: None. Examination performed at [facility] DEXA on a [employer] W DEXAScanner. DEXA INFORMATION Please note: 1) The T-score compares the BMD of an individual with the young normalmean and expresses the difference as a standard deviation score. 2) The Z-score compares the BMD of an individual with age-matched,gender-matched, and ethnic-matched controls and expresses the differenceas a standard deviation score. 3) The World Health Organization classifies postmenopausal womenas osteoporotic when T-scores are -2.5 or below, low bone mass whenT-scores are between -1.0 and -2.5, and normal when T-scores are -1.0 orabove. 4) In untreated postmenopausal women and elderly men there is a strongassociation between low BMD and the risk of osteoporotic fractures. 5) The National Osteoporosis Foundation recommends pharmacologic therapyfor osteoporosis in postmenopausal women and men over 50 who have: * A vertebral or hip fracture * A DXA hip or spine T-score less than or equal to -2.5 * Low bone mass and a [place]-adapted WHO 10 year probability of a hipfracture greater than or equal to 3% or 10 year probability of any majorosteoporosis-related fracture greater than or equal to 20%. * Patient preferences may indicate treatment for people with 10-yearfracture probability above or below these levels. 6) The [place] [employer] recommends pharmacologic therapyfor osteoporosis for chronic glucocorticoid users with T-scores of -2.0 orbelow. 7) Secondary causes of bone loss should be evaluated if clinicallyindicated since the etiology of low BMD cannot be determined by BMDmeasurement alone. Fracture risk assessment includes clinical criteria. See the WHO FRAX atwww.shef.ac.uk/frax. LUMBAR SPINE: -Average bone mineral density (g/sq.cm) L1-L4: 1.007 -Previous bone mineral density: None -T-score: -0.36 -Z-score: 1.60 LEFT FEMORAL NECK: -Average bone mineral density (g/sq.cm) Neck: 0.788 -Previous neck: None -T-score: -0.73 -Z-score: 0.88 LEFT TOTAL HIP: -Average bone mineral density (g/sq.cm) total hip: 0.932 -Previous total hip: None -T-score: -0.22 -Z-score: 1.08 IMPRESSION: Normal bone mineral density according to the W.H.O. criteria. Dictated on: 07/03/2024 1:23 PM Signed by: Toro Oneal M.D. 07/03/2024 1:31 PM Jyoti Carrasco APRN IMG DXA PROCEDURES Final R esult from Last 3 Months or Most Recently Relevant to Health Maintenance Insurance MEDICARE A & B [facility] MEDICARE SUPPLEMENT Care Teams Body Engineer Relationship Specialty Start Date End Date Jyoti Carrasco, FAUSTO [address] [place] [id number] PCP - General Family Medicine 02/21/24
--- OUTSIDE RECORDS SUMMARY | 2024-10-31 09:39 | XMS_ITS | Patient Health Record ---
Author Organization [facility] [place] Address [address] [place] [address] Care Team Providers Care Card Player Name Role Phone Magdalena Denney Unavailable [phone] RacquelSole Unavailable [phone] Allergies No Known Allergies Reason For Referral Reason She is due for repea t EUS in Jun 2024--- history of pancreatic cyst -- EUS on 07/07/23: A cystic lesion was seen in the pancreatic head. 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 Multiple cystic lesions were seen in the pancreatic body and pancreatic tail. Tissue has not been obtained. 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 Repeat EUS in June 2024. Diagnosis 1 Cyst of pancreas (K8 6.2) Referral Organization [facility] [place] Referring Provider First Name Sole Referring Provider Last Name Racquel Referring Provider Speciality Gastroente rology Referred Provider Gualberto Arreaga Referred Provider Specialty Gastroentero logy Referral Priority Routine Medications Medication SIG (Take, Route, Frequency, Duration) Notes Start Date End Date Status metFORMIN HCl Active Januvia Active Vitamin B 12 Active amLODIPine Besylate Active Famotidine 20 MG TAKE 1 TABLET BY DANYELLE TH DAILY AT BEDTIME for 90 Not-Taki ng Aspir-81 Active Atorvastatin Calcium Active hydrOXYzine HCl Acti ve Problems Problem Type SNOMED Code ICD Code Onset Dates Problem Status W/U Status Risk Notes Problem Gastroduodenitis (420356630) Gastritis, unspecified, without bleeding (K29.70) Active confirmed 07/2023 EGD: Gastritis, characterized by erosion and erythema, BX: Gastric antral type mucosa with reactive gastropathy, Neg Hpylori 04/19/24- telemed- Patient was taking famotidine and ran out of medication. She has no complaints or symptoms of reflux. 08/08/24- Telemed- She has no complaints. Problem Functional dyspepsia (3499573) Functional dyspepsia (K30) Active confirmed 07/2023 EGD: Normal esophagus Problem Diverticula of intestine (97475707) Diverticulosis of intestine, part unspecified, without perforation or abscess without bleeding (K57.90) Active confirmed 07/2023 Colonoscopy : Diverticulosis in the sigmoid colon Problem Cyst of pancreas (48237141) Cyst of pancreas (K86.2) Active confirmed 04/04/2023 CT A+P: No specific lesion identified with regard to the pancreas however there is inflammation seen adjacent to the head and neck of the pancreas, especially the inferior aspect and draping over a portion of the small bowel the small bowel is otherwise unremarkable please correlate with pancreatic enzymes. 05/29/2023 MRI: Ovoid 10 mm cystic lesion in the pancreatic head neck junction. 5 mm cystic lesion in the pancreatic head. 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 No worrisome findings. One-year follow-up MRI recommended for surveillance. 07/07/2023 EUS: A cystic lesion was seen in the pancreatic head. Tissue has not been obtained. 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 Multiple cystic lesions were seen in the pancreatic body and pancreatic tail. Tissue has not been obtained. 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 There was no sign of significant pathology in the common bile duct. No specimens collected. Repeat EUS in 1 year 04/19/24- Telemed- She has no complaints. She needs updated MRI for pancreatic cyst and EUS in Jun/Jul 2024 for suv of her pancreatic cyst 07/11/2024 EUS: A cystic lesion was seen in the pancreatic head. Tissue has not been obtained. 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 Multiple cystic lesions were seen in the pancreatic body and pancreatic tail. Tissue has not been obtained. 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 There was no sign of significant pathology in the common bile duct. No specimens collected. Repeat EUS in 3 years for surveilance 08/08/24- Discussed EUS - repeat in 3 years Problem Screening for malignant neoplasm of colon (759477320) Encounter for screening for malignant neoplasm of colon (Z12.11) Active confirmed 07/2023 Colonoscopy: Fair prep. Redundant colon. No specimens collected Vital Signs Height 5ft 4in in 04/19/2024 Weight 160 lbs 04/19/2024 BMI 27.46 kg/m2 04/19/2024 Encounters Encounter Location Date Provider Diagnosis [facility] [place] [address] [address] [place], [place] 04/19/2024 Sole Clement Cyst of pancreas K86.2 and Gastritis, unspecified, without bleeding K29.70 [facility] [place] [address], [place] 08/08/2024 Sole Clement Cyst of pancreas K86.2 and Gastritis, unspecified, without bleeding K29.70 Assessments Encounter Date Diagnosis (ICD Code) Assessment Notes Treatment Notes Treatment Clinical Notes Section Notes 04/19/2024 Gastritis, unspecified, without bleeding (ICD-10 - K29.70) 07/2023 EGD: Gastritis, characterized by erosion and erythema, BX: Gastric antral type mucosa with reactive gastropathy, Neg Hpylori 04/19/24- telemed- Patient was taking famotidine and ran out of medication. She has no complaints or symptoms of reflux. Anti-Reflux Plan: Raise the head of the bed 4 to 6 inches. Decrease excess weight. Do not lie down for at least 3-4 hours after meals. Avoid the following: Patillas including juices, Cigarettes, Chocolate, Tightly fitting Clothing, Coffee and other caffeinated beverages, carbonated beverages, high fat containing foods and fried foods. Gastritis: Care Instruction 04/19/2024 Cyst of pancreas (ICD-10 - K86.2) 04/04/2023 CT A+P: No specific lesion identified with regard to the pancreas however there is inflammation seen adjacent to the head and neck of the pancreas, especially the inferior aspect and draping over a portion of the small bowel the small bowel is otherwise unremarkable please correlate with pancreatic enzymes. 05/29/2023 MRI: Ovoid 10 mm cystic lesion in the pancreatic head neck junction. 5 mm cystic lesion in the pancreatic head. 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 No worrisome findings. One-year follow-up MRI recommended for surveillance. 07/07/2023 EUS: A cystic lesion was seen in the pancreatic head. Tissue has not been obtained. 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 Multiple cystic lesions were seen in the pancreatic body and pancreatic tail. Tissue has not been obtained. 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 There was no sign of significant pathology in the common bile duct. No specimens collected. Repeat EUS in 1 year 04/19/24- Telemed- She has no complaints. She needs updated MRI for pancreatic cyst and EUS in Jul 2024 for suv of her pancreatic cyst She needs updated MRI for pancreatic cyst and EUS in Jul 2024. Last visit 08/11/23-- history of pancreatic cyst -- EUS on 07/07/23: A cystic lesion was seen in the pancreatic head. Tissue has not been obtained. 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 Multiple cystic lesions were seen in the pancreatic body and pancreatic tail. Tissue has not been obtained. 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 There was no sign of significant pathology in the common bile duct. No specimens collected. Repeat MRI in May 2024. Repeat EUS in June 2024. 08/08/2024 Gastritis, unspecified, without bleeding (ICD-10 - K29.70) 07/2023 EGD: Gastritis, characterized by erosion and erythema, BX: Gastric antral type mucosa with reactive gastropathy, Neg Hpylori 04/19/24- telemed- Patient was taking famotidine and ran out of medication. She has no complaints or symptoms of reflux. 08/08/24- Telemed- She has no complaints. Anti-Reflux Plan: Raise the head of the bed 4 to 6 inches. Decrease excess weight. Do not lie down for at least 3-4 hours after meals. Avoid the following: Patillas including juices, Cigarettes, Chocolate, Tightly fitting Clothing, Coffee and other caffeinated beverages, carbonated beverages, high fat containing foods and fried foods. Gastritis: Care Instructions 08/08/2024 Cyst of pancreas (ICD-10 - K86.2) 04/04/2023 CT A+P: No specific lesion identified with regard to the pancreas however there is inflammation seen adjacent to the head and neck of the pancreas, especially the inferior aspect and draping over a portion of the small bowel the small bowel is otherwise unremarkable please correlate with pancreatic enzymes. 05/29/2023 MRI: Ovoid 10 mm cystic lesion in the pancreatic head neck junction. 5 mm cystic lesion in the pancreatic head. 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 No worrisome findings. One-year follow-up MRI recommended for surveillance. 07/07/2023 EUS: A cystic lesion was seen in the pancreatic head. Tissue has not been obtained. 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 Multiple cystic lesions were seen in the pancreatic body and pancreatic tail. Tissue has not been obtained. 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 There was no sign of significant pathology in the common bile duct. No specimens collected. Repeat EUS in 1 year 04/19/24- Telemed- She has no complaints. She needs updated MRI for pancreatic cyst and EUS in Jun/Jul 2024 for suv of her pancreatic cyst 07/11/2024 EUS: A cystic lesion was seen in the pancreatic head. Tissue has not been obtained. 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 Multiple cystic lesions were seen in the pancreatic body and pancreatic tail. Tissue has not been obtained. 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 There was no sign of significant pathology in the common bile duct. No specimens collected. Repeat EUS in 3 years for surveilance 08/08/24- Discussed EUS - repeat in 3 years Discussed EUS. EUS report revealed A cystic lesion was seen in the pancreatic head. Multiple cystic lesions were seen in the pancreatic body and pancreatic tail. Tissues has not been obtained. 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 No sign of significant pathology in the CBD. It was recommended to repeat in 3 years (2027). MRI stable cysts and recommended to repeat in 1-2 years. She mujica sno complaints. 04/19/2024 Other spoke with chase Salvador APRN Plan Of Treatment Pending Test Test Name Order Date MRI : Abdomen with Contrast and without contrast 04/19/2024 EGD+BX 07/03/2023 CA 19-9 04/19/2024 COLONOSCOPY SCREENING 07/03/2023 Insurance Providers Payer Name Payer Address Payer Phone Subscriber Number Group Number Insured Name Patient Relationship to Insured Coverage Start Date Coverage End Date MEDICARE [address] [place] [address] [id number] LYSSA WALLIS Self - patient is the insured 2 [employer] Supp [address] [place] [address] [id number] LYSSA WALLIS Self - patient is the insured Medical (General) History Medical History History ICD Code diabetes hyperlipidemia hypertension pancreatic cysts GERD Surgical History Surgery Date(Month/Year) partial hysterectomy Hospitalization History Reason Date(Month/Year) lower back pain 03/2023
[2024-10-31 10:05] LABS: MANUAL DIFF FLAG NO
[2024-10-31 10:46] LABS: Basophils Absolute Auto 0.1 X10*3/uL (0.0-0.2); Basophils Percent Auto 0.6 % (0-2); Eosinophils Absolute Auto 0.3 X10*3/uL (0.0-0.4); Eosinophils Percent Auto 3.5 % (0-4); Hematocrit 40.4 % (37.0-47.0); Imm Gran Abs Auto 0.02 X10*3/uL (0.00-0.03); Imm Gran Pct Auto 0.2 % (0.0-0.4); Mean Corpuscular HGB Conc 32.2 g/dl (31.0-35.0); Mean Corpuscular Hemoglobin 28.9 pg (27.0-33.0); Mean Corpuscular Volume 89.8 fL (80.0-98.0); Mean Platelet Volume 10.8 fL (9.4-12.3); Monocytes Absolute Auto 0.9 X10*3/uL (0.1-1.2); Monocytes Percent Auto 10.7 % (2-11); Neutrophils Absolute Auto 4.8 x10*3/uL (2.0-8.3); Platelet Count 298 X10*3/uL (160-400); Red Cell Distribution Width 12.1 % (11.0-16.0)
[2024-10-31 10:53] LABS: Alanine Aminotransferase 14 U/L (0-31); Albumin Level 4.1 g/dL (3.5-5.0); Alkaline Phosphatase 97 U/L (39-117); Anion Gap 12 (12-20); Aspartate Amino Transferase 17 U/L (5-31); Bilirubin Total 0.5 mg/dL (0.0-1.0); Blood Urea Nitrogen 17 mg/dL (9-16); Calcium 9.4 mg/dL (8.4-10.2); Carbon Dioxide 26 mmol/L (22-29); Chloride 105 mmol/L (96-108); Cholesterol 129 mg/dL (<200); Estimated Glomerular Filt Rate > 60; Glucose Random 104 mg/dL (60-115); HDL Cholesterol 41 mg/dL (>40); LDL Cholesterol Calculated 68 mg/dL (<100); Sodium 139 mmol/L (135-145); Total Protein 7.5 g/dL (6.5-8.0); Triglycerides 102 mg/dL (<150)
[2024-10-31 10:57] LABS: Estimated Average Glucose 140 mg/dL; Hemoglobin A1C 159.9302 umol/L; Hemoglobin A1c % 6.5 % (<6.0); Total Hemoglobin (HGBA1C) 3327.6723 umol/L
== END 2024-10-31 09:07 | disposition home or self-care (01) ==
LOC: HO.10HDL 09:06
PROVIDERS: Visit Provider Internal Medicine
DX: E11.9 Type 2 diabetes mellitus without complications (principal); E78.00 Pure hypercholesterolemia, unspecified; I10 Essential (primary) hypertension; K59.00 Constipation, unspecified; N95.1 Menopausal and female climacteric states
CPT/HCPCS: 36415; 80053; 80061; 83036; 85025

== ENCOUNTER 2025-03-03 08:51 | Outpatient (REF) | payer MEDICARE, SELFPAY ==
--- OUTSIDE RECORDS SUMMARY | 2025-03-03 10:11 | XMS_ITS | Encounter Summary ---
Author Organization [facility] Address [facility] [place] [address] Care Team Providers Care Wad Impregnator Name Role Phone Jyoti Carrasco APRN Primary Care Provider [phone] Encounter Details Date Type Department Care Team (Late st Contact Info) Description 05/10/2024 Scanned Outside Records [facility] Historical Encounter Provider, MD Bipin Social History [...] week 04/14/2023 How often do you attend [facility] or jain services? Patient declined 04/14/2023 Do you belong to any clubs o r organizations such as rastafari groups, unions, fraternal or athletic groups, or [...] Recorded Patient Health Questionnaire-2 Score 0 04/14/2023 [facility] - Occupational Stress Questionnaire Answer [...] place to sleep or slept in a custodial (including now)? No 04/14/2023 [place] Domestic [...] Description 05/29/2025 1:00 PM EST Office Visit [facility] [address] [place] [address] Jyoti Carrasco APRN [address] [place] [address] documented as of this encounter Visit Diagnoses Not on filedocumented in this encounter Care Teams Wad Impregnator Relationship Specialty Start Date End Date Jyoti Carrasco, FAUSTO [address] [place] [address] PCP - General Family Medicine 02/21/24 documented as of this encounter
--- OUTSIDE RECORDS SUMMARY | 2025-03-03 10:11 | XMS_ITS | Clinical Summary ---
Author Organization [facility] Address [address] [place] [address] Phone Care Team Providers Care Ore Charger Name Role Phone Armida Hemphill MD Primary Care Provider [phone] Encounters Date Type Department Care Team Description 01/23/2025 8:36 AM EDT - 01/23/2025 11:59 PM EDT Hospital [facility] [address] [address] Encounter for screening mammogram for breast cancer Discharge Disposition: Home or Self Care from Last 3 Months Surgical History Surgery Date Site/Laterality Comments HYSTERECTOMY 06/19/2013 - 06/18/2014 Family History Medical History Relation Name Comments Breast cancer Maternal Grandmother Breast cancer Mother's Sister Relation Name Status Comments Maternal Grandmother Mother's Sister Alive Social History Tobacco Use Types Packs/Day Years Used Date Smoking Tobacco: Never Assessed Comments No Sex and Gender Information Value Date Recorded Sex Assigned at Not on file Legal Sex Female 2:56 PM EST Gender Identity Not on file Sexual Orientation Not on file Obstetrics History Para Term AB IAB SAB Ectopic Multiple Livin g Live Births 2 Last Filed Vital Signs Vital Sign Reading Time Taken Comments Blood Pressure - - Pulse - - Temperature - - Respiratory Rate - - Oxygen Saturation - - Inhaled Oxygen Concentration - - Weight 72.6 kg (160 lb) 01/23/2025 8:44 AM EDT Height 162.6 cm (5' 4 ) 01/23/2025 8:44 AM EDT Body Mass Index 27.46 01/23/2025 8:44 AM EDT Plan of Treatment Health Maintenance Due Date Last Done Comments DTaP,Tdap,and Td Vaccines (1 - Tdap) 1975 Pneumococcal Vaccine: 50+ Years (1 of 1 - PCV) 2006 Zoster Vaccines (1 of 2) 2006 Colorectal Cancer Screening: Colonoscopy 05/18/2022 Falls Risk Assessment 05/18/2022 Hepatitis C Screening 05/18/2022 Medicare Annual Wellness Visit 05/18/2022 Osteoporosis Screening (Bone Density Screening) 05/18/2022 Social Influencers of Health Screening 05/18/2022 Depression Screening 06/19/2024 COVID-19 Vaccine ( - season) 2025 Influenza Vaccine (#1) 2025 Breast Cancer Screening 01/23/2027 01/24/20, 01/01/2024, 12/29/2022, Additional history exists RSV Immunization Adult Patients (1 - 1-dose 75+ series) 2031 HIB Vaccines Aged Out No longer eligi [...] on patient's age to complete this topic IPV Vaccines Aged Out No longer eligi ble based on patient's age to complete this topic MMR Vaccines Aged Out No longer eligi ble based on patient's age to complete this topic Meningococcal ACWY Vaccine Aged Out N o longer eligible based on patient's age to complete this topic Meningococcal B Vaccine Aged Out No l onger eligible based on patient's age to complete this topic RSV Immunization Patients Under 20 months Aged Out No longer eligible based on patient's age to complete this topic Varicella Vaccines Aged Out No longer eligible based on patient's age to complete this topic Procedures Procedure Name Priority Date/Time Associated Diagnosis Comments MG MAMMO DIGITAL SCREENING W MARKUS BILAT Routine 01/23/2025 8:53 AM EDT Encounter for screening mammogram for breast cancer from Last 3 Months Results * MG Mammo Digital Screening w Markus bilat (01/23/2025 8:53 AM EDT) Anatomical Region Laterality Modality Breast Bilateral Mammography 01/23/2025 4:54 PM EDT Impressions 01/23/2025 5:03 PM EDT No mammographic evidence of malignancy. No suspicious interval change. A negative mammogram in the presence of a clinically suspicious palpable abnormality does not preclude the possibility of malignancy or alter the indications for biopsy. ASSESSMENT: BI-RADS 2: BENIGN RECOMMENDATION(S): 1: Routine screening mammogram BILATERAL in 1 year. [facility] [address], [address] -------- FINAL REPORT -------- Dictated By: Andrez Elias Dictated Date: 01/23/2025 16:54 ET Assigned Physician: Andrez Elias Reviewed and Electronically Signed By: Andrez Elias Signed Date: 01/23/2025 17:03 ET Workstation ID: [id number] Transcribed By: Self Edit Transcribed Date: 01/23/2025 16:54 ET Narrative 01/23/2025 5:03 PM EDT EXAM: SCREENING MAMMOGRAPHY, BILATERAL HISTORY: SCREENING. Family history of breast cancer; maternal grandmother diagnosed age 42, maternal aunt diagnosed age 60 COMPARISON: 01/01/24, 12/29/22, 12/27/21, 12/22/20 TECHNIQUE: Synthesized CC and MLO projections of each breast. Tomosynthesis of each breast in the CC and MLO projections. ADDITIONAL IMAGING: None Computer-aided detection was employed with the iCAD [employer]ovia AI 3-D. TISSUE DENSITY: There are scattered areas of fibroglandular density. (BI-RADS category B) FINDINGS: RIGHT BREAST: No suspicious mass. No suspicious calcification. No distortion. Unchanged low density 0.9 cm focal asymmetry in the 5 o'clock position 5 cm from the right nipple. There are some unchanged tightly grouped coarse calcifications in the 6 o'clock position with typically benign features. LEFT BREAST: No suspicious mass. No suspicious calcification. No distortion. No additional suspicious left breast findings Procedure Note Andrez Elias MD - 01/23/2025 EXAM: SCREENING MAMMOGRAPHY, BILATERAL HISTORY: SCREENING. Family history of breast cancer; maternalgrandmother diagnosed age 42, maternal aunt diagnosed age 60 COMPARISON: 01/01/24, 12/29/22, 12/27/21, 12/22/20 TECHNIQUE: Synthesized CC and MLO projections of each breast.Tomosynthesis of each breast in the CC and MLO projections. ADDITIONAL IMAGING: None Computer-aided detection was employed with the iCAD [employer]Found AI 3-D. TISSUE DENSITY: There are scattered areas of fibroglandular density.(BI-RADS category B) FINDINGS: RIGHT BREAST: No suspicious mass. No suspicious calcification. No distortion.Unchanged low density 0.9 cm focal asymmetry in the 5 o'clock position 5cm from the right nipple. There are some unchanged tightly grouped coarsecalcifications in the 6 o'clock position with typically benign features. LEFT BREAST: No suspicious mass. No suspicious calcification. No distortion. Noadditional suspicious left breast findings IMPRESSION: No mammographic evidence of malignancy. No suspicious interval change. A negative mammogram in the presence of a clinically suspicious palpableabnormality does not preclude the possibility of malignancy or alter theindications for biopsy. ASSESSMENT: BI-RADS 2: BENIGN RECOMMENDATION(S): 1: Routine screening mammogram BILATERAL in 1 year. [facility] [address], [address] -------- FINAL REPORT -------- Dictated By: Andrez Elias Dictated Date: 01/23/2025 16:54 ET Assigned Physician: Andrez Elias Reviewed and Electronically Signed By: Andrez Elias Signed Date: 01/23/2025 17:03 ET Workstation ID: [id number] Transcribed By: Self Edit Transcribed Date: 01/23/2025 16:54 ET us Self Referral Sppl IMG BI PROCEDURES Final Resul t from Last 3 Months Insurance [facility] MEDICARE Care Teams Ore Charger Relationship Specialty Start Date End Date Armida Hemphill MD [address] [place] [address] [place] [address] PCP - General Internal Medicine 01/23/25
--- OUTSIDE RECORDS SUMMARY | 2025-03-03 10:11 | XMS_ITS | Encounter Summary ---
Author Organization [facility] Address [facility] [place] [address] Care Team Providers Care Bread Slicer Machine Name Role Phone Jyoti Carrasco APRN Primary Care Provider [phone] Encounter Details Date Type Department Care Team (Late st Contact Info) Description 04/23/2024 Scanned Outside Records [facility] Historical Encounter Provider, MD Bipin Social [...] week 04/14/2023 How often do you attend [facility] or [facility] services? Patient declined 04/14/2023 Do you belong to any clubs o r organizations such as adventism groups, unions, fraternal or athletic groups, or [...] 0 04/14/2023 [facility] - Occupational Stress Questionnaire Answer Date Recorded [...] place to sleep or slept in a longterm (including now)? No 04/14/2023 [place] Domestic [...] Description 05/29/2025 1:00 PM EST Office Visit [facility] [address] [place] [address] Jyoti Carrasco APRN [address] [place] [address] documented as of this encounter Visit Diagnoses Not on filedocumented in this encounter Care Teams Bread Slicer Machine Relationship Specialty Start Date End Date Jyoti Carrasco, FAUSTO [address] [place] [address] PCP - General Family Medicine 02/21/24 documented as of this encounter
--- OUTSIDE RECORDS SUMMARY | 2025-03-03 10:11 | XMS_ITS | Clinical Summary ---
Author Organization [facility] Address [address] [place] [address] Care Team Providers Care Christian Science Reader Name Role Phone Jyoti Carrasco APRN Primary Care Provider [phone] Allergies No known active allergies Medications aspirin 81 mg chewable tablet CHEW ONE TABLET BY MOUTH EVERY DAY 02/07/2023 Active hydrOXYzine 10 mg tablet Take 10 mg by mouth 3 (three) times a day if needed. Active Januvia 100 mg tabletIndicatio ns:Type 2 diabetes mellitus without complication, without long-term current use of insulin (CMS/Commercial -[facility]) Take 1 tablet (100 mg total) by mouth 1 (one) time each day. 90 tablet 1 05/24/2024 Active atorvastatin (LIPITOR) 40 mg tabletIndicatio ns:Type 2 diabetes mellitus without complication, without long-term current use of insulin (CMS/Commercial -[facility]) Take 1 tablet (40 mg total) by mouth 1 (one) time each day. 90 tablet 1 05/24/2024 Active amLODIPine (NORVASC) 10 mg tabletIndicatio ns:Hypertension , essential Take 1 tablet (10 mg total) by mouth 1 (one) time each day. 90 tablet 08/22/2024 Active metFORMIN (GLUCOPHAGE) 1,000 mg tabletIndicatio ns:Type 2 diabetes mellitus without complication, without long-term current use of insulin (CMS/Commercial -[facility]) Take 1 tablet (1,000 mg total) by mouth in the morning and 1 tablet (1,000 mg total) in the evening. Take with meals. 180 tablet 08/22/2024 Active Active Problems Problem Noted Date Diagnosed Date [facility]yst [facility] 05/24/2024 Diverticula of intestine 05/24/2024 Functional dyspepsia 05/24/2024 Gastroduodenitis 05/24/2024 Hypertension, essential 05/24/2024 Adrenal adenoma, left 04/14/2023 [facility] 04/14/2023 Overview (04/14/2023): Patient taking Januvia for a year.Denies alcohol use or abdominal pain. No prior finding reported. Left nephrolithiasis 04/14/2023 Overview (04/14/2023): 1 mm non-obstructive found on CT 04/04/23. Type 2 diabetes mellitus wit hout complication, without long-term current use of insulin [facility] 04/14/2023 Immunizations Immunization Administration Dates Next Due Influenza, High-Dose, Quadrivalent (CVX 197) Influenza, Quadrivalent, Adjuvanted (CVX 205) Influenza, trivalent, adjuvanted (CVX 168) 04/05 Rsv, Recombinant, Protein Rider bunit Rsvpref, Adj, Pf (CVX 303) 04/18/2023 pneumococcal conjugate PCV20 , polysaccharide [id number] conjugate (CVX 216) 09/09/2022 Family History Medical History Relation Name Comments Kidney disease Brother Addie Lamb Cancer Maternal Grandmother Sole Rosa Diabetes Mother Anikawilli Cruziz Cancer Mother's Sister Yudith Garcia Relation Name Status Comments Brother Addie Lamb Maternal Grandmother Sole [place] Mother Anikawilli Hillmando Reza Mother's Sister Yudith Garcia Social History [...] week 04/14/2023 How often do you attend [facility] or alevism services? Patient declined 04/14/2023 Do you belong to any clubs o r organizations such as mandaen groups, unions, fraternal or athletic groups, or [...] Recorded Patient Health Questionnaire-2 Score 0 05/24/2024 [facility] [place] [facility] Occupat ional Health - Occupational Stress [...] 72 08/22/2024 1:00 PM EST Temperature 36.1 C (97 F) 07/11/2024 11:35 AM EST Respiratory Rate 16 [...] Description 05/29/2025 1:00 PM EST Office Visit [facility] [address] [place] [address] Jyoti Carrasco, HOSE INSPECTOR AND PATCHER [address] [place] [address] Health Maintenance Due Date Last Done Comments CT Colonography 1956 FIT-DNA 1956 FIT 1956 FOBT 1956 Sigmoidoscopy 1956 Depression Screening 1968 DTaP,Tdap,and Td Vaccines (1 - Tdap) 1975 Advance Care Planning 2021 Colonoscopy 06/19/2024 06/19/2014 [place] Colorectal Cancer Screening 06/19/2024 Mammogram 11/17/2024 11/17/2022 Diabetic Foot Exam 01/21/2025 01/22/2024 Influenza Vaccine (#1) 2025 , 04/18/2023, 04/17/2022 Hemoglobin A1C 02/19/2025 08/19/2024, 11/2 10/2023, 08/02/2023, Additional history exists Fall Risk Screening [...] or 60 years and older Completed 04/18/2023 Osteoporosis Screening Completed 07/02/2024 Diabetes Screening Discontinued [...] Procedure Name Priority Date/Time Associated Diagnosis Comments HEMOGLOBIN A1C Routine 08/19/2024 8:54 AM EST Type 2 diabetes mellitus without complication, without long-term current use of insulin ([facility] ) LIPID PANEL Routine 08/19/2024 8:54 AM EST Type 2 diabetes mellitus without complication, without long-term current use of insulin ([facility] ) DEXA BONE DENSITY AXIAL SKELETON Routine 07/02/2024 1:00 PM EST Osteoporosis screening from Last 3 Months or Most Recently Relevant to Health Maintenance Results * (ABNORMAL) Hemoglobin A1c (08/19/2024 8:54 AM EST) Pathologist [facility] Hemoglobin A1c 6.5(H) 4.0 - 6.0 % LAB CHEMISTRY METHOD 08/19/2024 6:40 PM EST [facility] Blood Venous blood specimen / Unknown Venipuncture / Unknown 08/19/2024 8:54 AM EST 08/19/2024 8:54 AM EST Jyoti Carrasco HOSE INSPECTOR AND PATCHER LAB BLOOD ORDERABLES Final Result [facility] [address], [place] [address], * (ABNORMAL) Lipid panel (08/19/2024 8:54 AM EST) Pathologist [facility] Triglycerides 78 7 - 149 mg/dL LAB [...] Carrasco APRN LAB BLOOD ORDERABLES Final Result [facility] [address] [facility] [address] [place] [address], * DEXA Bone Density Axial Skeleton (07/02/2024 1:00 PM EST) Anatomical Region Laterality Modality Wrist, Hip, L-spine N/A Radiographic Imaging Impressions 07/03/2024 1:31 PM EST Normal bone mineral density according to the W.H.O. criteria. Dictated on: 07/03/2024 1:23 PM Signed by: Toro Oneal M.D. 07/03/2024 1:31 PM Narrative 07/03/2024 1:31 PM EST DEXA BONE DENSITY AXIAL SKELETON HISTORY: Special screening for osteoporosis postmenopausal. History of diabetes. COMPARISON: None. Examination performed at [facility] DEXA on a [employer] W DEXA Scanner. DEXA INFORMATION Please note: [...] above or below these levels. 6) The [place] [employer] recommends pharmacologic therapy for osteoporosis for chronic glucocorticoid users with T-scores of -2.0 or below. 7) Secondary causes of bone loss should [...] History ofdiabetes. COMPARISON: None. Examination performed at [facility] DEXA on a [employer] Network W DEXAScanner. DEXA INFORMATION Please note: 1) [...] above or below these levels. 6) The [place] [employer] recommends pharmacologic therapyfor osteoporosis [...] Health Maintenance Insurance MEDICARE A & B [facility] MEDICARE SUPPLEMENT Care Teams Christian Science Reader Relationship Specialty Start Date End Date Jyoti Carrasco APRN [address] [place] [address] PCP - General Family Medicine 02/21/24
--- OUTSIDE RECORDS SUMMARY | 2025-03-03 10:11 | XMS_ITS | Patient Health Record ---
Author Organization [facility] [place] Address [address] [place] [address] Care Team Providers Care Welder Setter Resistance Machine Name Role Phone Magdalena Denney Unavailable [phone] RacquelSole Unavailable [phone] Allergies No Known Allergies Reason For Referral [...] pancreas (K8 6.2) Referral Organization [facility] [place] Referring Provider First Name Sole Referring Provider Last Name Racquel Referring Provider Speciality Gastroente rology Referred Provider Gualberto Arreaga Referred Provider Specialty Gastroentero logy Referral Priority Routine Medications Medication SIG (Take, Route, Frequency, Duration) Notes Start Date End Date Status metFORMIN HCl Active Januvia Active Vitamin B 12 Active amLODIPine Besylate Active Famotidine 20 MG TAKE 1 TABLET BY DANYELLE TH DAILY AT BEDTIME; Duration: 90 Not-Taking Aspir-81 Active Atorvastatin Calcium Active hydrOXYzine HCl Acti ve Problems Problem Type SNOMED Code ICD Code Onset Dates Problem Status W/U Status Risk Notes Problem Gastroduodenitis (687271957) Gastritis, unspecified, without bleeding (K29.70) Active confirmed 07/2023 EGD: Gastritis, characterized by erosion and erythema, BX: Gastric antral type mucosa with reactive gastropathy, Neg Hpylori 04/19/24- telemed- Patient was taking famotidine and ran out of medication. She has no complaints or symptoms of reflux. 08/08/24- Telemed- She has no complaints. Problem Functional dyspepsia (8226941) Functional dyspepsia (K30) Active confirmed 07/2023 EGD: Normal esophagus Problem Diverticula of intestine (56903242) Diverticulosis of intestine, part unspecified, without perforation or abscess without bleeding (K57.90) Active confirmed 07/2023 Colonoscopy : Diverticulosis in the sigmoid colon Problem Cyst of pancreas (50129362) Cyst of pancreas (K86.2) Active confirmed 04/04/2023 [...] Problem Screening for malignant neoplasm of colon (351669342) Encounter for screening for malignant neoplasm of colon (Z12.11) Active confirmed 07/2023 Colonoscopy: Fair prep. Redundant colon. No specimens collected Vital Signs Height 5ft 4in in 04/19/2024 Weight 160 lbs 04/19/2024 BMI 27.46 kg/m2 04/19/2024 Encounters Encounter Location Date Provider Diagnosis [facility]astro[facility] [place] [address] [place] [place], [place] 04/19/2024 Sole Clement Cyst of pancreas K86.2 and Gastritis, unspecified, without bleeding K29.70 [facility] [place] [address] [place], [place] 08/08/2024 Sole Clement Cyst of pancreas K86.2 [...] 3-4 hours after meals. Avoid the following: [place] including juices, Cigarettes, Chocolate, Tightly fitting Clothing, [...] 3-4 hours after meals. Avoid the following: [place] including juices, Cigarettes, Chocolate, Tightly fitting Clothing, [...] Coverage End Date MEDICARE [address] [place] [address] [id number] LYSSA WALLIS Self - patient is the insured 2 [employer] Supp [address] [place] [address] [id number] LYSSA WALLIS Self - patient is the insured Medical (General) History Medical History History ICD Code diabetes hyperlipidemia hypertension pancreatic cysts GERD Surgical History Surgery Date(Month/Year) partial hysterectomy Hospitalization History Reason Date(Month/Year) lower back pain 03/2023
--- OUTSIDE RECORDS SUMMARY | 2025-03-03 10:12 | XMS_ITS | Clinical Summary ---
Author Organization [facility] Address [address] [place] [address] Phone Care Team Providers Care Seedling Sorter Name Role Phone Pcp, Unknown Primary Care Provider Unavailabl e Allergies No known active allergies Medications amLODIPine (NORVASC) 10 MG tablet Take 10 mg by mouth daily. 02/02/2022 Active atorvastatin (LIPITOR) 40 MG tablet Take 40 mg by mouth daily. 02/02/2022 Active cyanocobalamin, vitamin B-12, 1000 MCG tablet Take 1,000 mcg by mouth daily. 02/07/2022 Active hydrOXYzine HCL (ATARAX) 10 MG tablet Take 10 mg by mouth 3 (three) times a day. 02/08/2022 Active metFORMIN (GLUCOPHAGE) 1000 MG tablet Take 1,000 mg by mouth 2 (two) times a day. 02/07/2022 Active JANUVIA 100 mg tablet Take 100 mg by mouth daily. 02/07/2022 Active Active Problems No known active problems Social History Tobacco Use Types Packs/Day Years Used Date Smoking Tobacco: Never Smokeless Tobacco: Never Education Answer Date Recorded Are you interested in more education? Not on alexandra e 10/15/2022 Are you concerned about learning? Not on file 10/15/2022 No 10/15/2022 No 10/15/2022 Digital Access Answer Date Recorded No 11/13/2022 No 11/13/2022 No 11/13/2022 Reliable internet access at home? Not on file 11/13/2022 Device with a working camera? Not on file Comments Unknown Sex and Gender Information Value Date Recorded Sex Assigned at Not on file Legal Sex Female 9:26 AM EDT Gender Identity Not on file Sexual Orientation Not on file Last Filed Vital Signs Vital Sign Reading Time Taken Comments Blood Pressure 151/84 03/17/2022 10:24 AM EDT Pulse 67 03/17/2022 10:24 AM EDT Temperature 36.9 C (98.5 F) 03/17/2022 10:24 AM EDT Respiratory Rate 14 03/17/2022 10:24 AM EDT Oxygen Saturation 100% 03/17/2022 10:24 AM EDT Inhaled Oxygen Concentration - - Weight 77.1 kg (170 lb) 03/17/2022 10:24 AM EDT per pt Height - - Body Mass Index - - Plan of Treatment Health Maintenance Due Date Last Done Comments Adult Td,Tdap Booster 1955 CREATININE LEVEL 1956 LIPID PANEL 1956 DEPRESSION SCREENING 1968 HEPATITIS C SCREENING 1974 MAMMOGRAM 1996 COLOGUARD 2001 COLONOSCOPY 2001 COLORECTAL CANCER SCREENING 2001 FIT TEST 2001 FOBT 2001 SIGMOIDOSCOPY 2001 VIRTUAL COLONOSCOPY 2001 PNEUMOCOCCAL VACCINES (50+ years) (1 of 1 - PCV) 2006 OSTEOPOROSIS SCREENING INITIAL (ONE-TIME) 2021 INFLUENZA VACCINE (#1) 2025 , 03/19/2020, 06/26/2019, Additional history exists COVID-19 VACCINE (3 - 2024- season) 2025 11/08/2021, 12/17/2020 RSV VACCINE (1 - 1-dose 75+ series) 2031 ZOSTER VACCINES Completed 06/14/2021, 09/2020, 03/17/2021 SMOKING STATUS SCREENING (Once After 26 Yrs) Completed 03/17/2022 HEPATITIS A VACCINES Aged Out No long er eligible based on patient's age to complete this topic HIB VACCINES Aged Out No longer eligi ble based on patient's age to complete this topic MENINGOCOCCAL VACCINES (ACWY) Aged Out No longer eligible based on patient's age to complete this topic MENINGOCOCCAL VACCINES (B) Aged Out N o longer eligible based on patient's age to complete this topic Medical Devices Not on file Insurance MEDICARE PART A & B [facility] MEDICARE SUPPLEMENT MEDICARE PART A & B [facility] MEDICARE SUPPLEMENT MEDICARE PART A & B MEDICARE SUPPLEMENT MEDICARE PART A & B MEDICARE SUPPLEMENT MEDICARE PART A & B [facility] MEDICARE [place]LE[place] [address] [place] [phone] MEDICARE PART A & B [facility] MEDICARE SUPPLEMENT MEDICARE PART A & B [facility] MEDICARE SUPPLEMENT MEDICARE PART A & B Member Subscriber Plan / Payer (Ef fective 2021-Present) Name:Yesica Lamb Member ID:[id number] Relation to Subscriber:Self Name:Yesica Lamb Subscriber ID:[id number] Payer ID:[id number] Group ID:Not on file Type:Medicare Address: [employer] [address] MEDICARE SUPPLEMENT MEDICARE PART A & B [facility] MEDICARE SUPPLEMENT Care Teams Seedling Sorter Relationship Specialty Start Date End Date Pcp, Unknown PCP - General 03/17/22 Additional Source Comments The information contained in this document represents components of the legal health record. It is not the complete legal health record.[facility]
[2025-03-03 10:56] LABS: Hemoglobin A1C 167.7535 umol/L; Total Hemoglobin (HGBA1C) 3352.5804 umol/L
[2025-03-03 11:11] LABS: Alanine Aminotransferase 15 U/L (0-31); Albumin Level 4.5 g/dL (3.5-5.0); Alkaline Phosphatase 96 U/L (39-117); Anion Gap 15 (12-20); Aspartate Amino Transferase 21 U/L (5-31); Blood Urea Nitrogen 14 mg/dL (9-16); Calcium 9.6 mg/dL (8.4-10.2); Carbon Dioxide 25 mmol/L (22-29); Chloride 106 mmol/L (96-108); Estimated Glomerular Filt Rate > 60; Potassium 3.9 mmol/L (3.3-5.1); Sodium 142 mmol/L (135-145); Total Protein 8.0 g/dL (6.5-8.0)
== END 2025-03-03 08:52 | disposition home or self-care (01) ==
LOC: HO.10HDL 08:51
PROVIDERS: Visit Provider Internal Medicine
DX: E11.9 Type 2 diabetes mellitus without complications (principal); D11.9 Benign neoplasm of major salivary gland, unspecified; E78.00 Pure hypercholesterolemia, unspecified; I10 Essential (primary) hypertension
CPT/HCPCS: 36415; 80053; 82043; 82570; 83036